=== PATIENT | female | born 1970 | race Two or more races ===

== ENCOUNTER 2021-05-04 09:45 | Inpatient (IN) | payer OTHER ==
[~2021-05-04] VITALS: Ht 167.6 cm; Wt 117.0 kg
[2021-05-04] MEDS ORDERED: ADDERALL 20 MG20 MG PO (14:00)
[2021-05-07] MEDS ORDERED: TOPIRAMATE50 MG (08:10)
== END 2021-05-08 11:51 | disposition home or self-care (01) | DRG 741 ==
LOC: O/R 05-07 05:38 → SURH 05-07 07:00 → OB/GYN 05-07 16:27
PROVIDERS: ADMIT Obstetrics & Gynecology Gynecologic Oncology; ATTEND Obstetrics & Gynecology Gynecologic Oncology
PROC: 0UT74ZZ Resection of Bilateral Fallopian Tubes, Percutaneous Endoscopic Approach (ICD-10-PCS; 2021-05-07)
PROC: 0UT94ZZ Resection of Uterus, Percutaneous Endoscopic Approach (ICD-10-PCS; principal; 2021-05-07 07:00)
DX: D06.7 Carcinoma in situ of other parts of cervix (principal); N83.8 Other noninflammatory disorders of ovary, fallopian tube and broad ligament; N88.8 Other specified noninflammatory disorders of cervix uteri